=== PATIENT | female | born 1955 | race Caucasian/White ===

== ENCOUNTER 2016-11-25 09:16 | Outpatient (CLI) | payer BC ==
[~2016-11-25] VITALS: Ht 167.6 cm; Wt 97.5 kg
[~2016-11-25 09:16] MED LIST: ACET65TA OR; ASPI325T OR; ASPI325T PO; ATEN25TA OR; ATEN25TA PO; PREV15CA PO; PREV15CA18 PO; TUMS500C OR
[2016-11-25] MEDS ORDERED: NS 1,000 ML IV SCH (09:30)
[2016-11-25] MEDS ORDERED: PROPOFOL 200 MG/20 ML VIAL As Ordered ONE ×3 (10:07→10:31)
[2016-11-25] MEDS ORDERED: LIDOCAINE 2% INJ 100 MG/5 ML SDV (FOR ANES.) As Ordered ONE (10:08)
--- NOTE | 2016-11-25 10:27 | ROOR ---
Patient Name: Ruchi Prasad Procedure Date: 11/25/2016 10:03 AM Date of : 1955 Age: 61 Room: [facility] Gender: Female Note Status: Finalized Procedure: Upper Endoscopy + Biopsies Indications: Heartburn Providers: Miguel Angel Mckeon MD Referring MD: Marco Walton MD Requesting Provider: Medicines: Monitored Anesthesia Care Complications: No immediate complications. Procedure: Pre-Anesthesia Assessment: - The heart rate, respiratory rate, oxygen saturations, blood pressure, adequacy of pulmonary ventilation, and response to care were monitored throughout the procedure. The Endoscope was introduced through the mouth, and advanced to the second part of duodenum. The upper GI endoscopy was accomplished without difficulty. The patient tolerated the procedure well. Findings: The Z-line was irregular and was found 40 cm from the incisors. Multiple biopsies were obtained with cold forceps for evaluation to rule out Lee's Esophagus randomly at the gastroesophageal junction. A small hiatal hernia was present. Multiple small sessile polyps with no stigmata of recent bleeding were found on the greater curvature of the stomach. The exam of the duodenum was otherwise normal. Impression: - Z-line irregular, 40 cm from the incisors. - Small hiatal hernia. - Multiple gastric polyps. - Multiple biopsies were obtained at the gastroesophageal junction. - The examination was otherwise normal. Recommendation: - Patient has a contact number available for emergencies. The signs and symptoms of potential delayed complications were discussed with the patient. Return to normal activities tomorrow. Written discharge instructions were provided to the patient. - High fiber diet. - Discharge patient to home. - Continue present medications. - Await pathology results. - Telephone GI clinic for pathology results in 1 week. - Check Portal Online for Path Results.([email or web address]) - Return to referring physician. - The findings and recommendations were discussed with the patient's family. Miguel Angel Mckeon MD Miguel Angel Mckeon MD 11/25/2016 10:27:09 AM This report has been signed electronically. Number of Addenda: 0 Note Initiated On: 11/25/2016 10:03 AM Estimated Blood Loss: Estimated blood loss: none.
--- NOTE | 2016-11-25 10:56 | ROOR ---
Patient Name: Ruchi Prasad Procedure Date: 11/25/2016 10:04 AM Date of : 1955 Age: 61 Room: [facility] Gender: Female Note Status: Finalized Procedure: Total Colonoscopy to Cecum + Cold Snare Polypectomy + Hemoclips Indications: Colon cancer screening in patient at increased risk: Colorectal cancer in sister Providers: Miguel Angel Mckeon MD Referring MD: Marco Walton MD Requesting Provider: Medicines: Monitored Anesthesia Care Complications: No immediate complications. Procedure: Pre-Anesthesia Assessment: - The heart rate, respiratory rate, oxygen saturations, blood pressure, adequacy of pulmonary ventilation, and response to care were monitored throughout the procedure. The Colonoscope was introduced through the anus and advanced to the cecum, identified by appendiceal orifice and ileocecal valve. The colonoscopy was performed without difficulty. The patient tolerated the procedure well. The quality of the bowel preparation was excellent. Findings: The perianal and digital rectal examinations were normal. Non-bleeding internal hemorrhoids were found during retroflexion. The hemorrhoids were small and Grade I (internal hemorrhoids that do not prolapse). Multiple small and large-mouthed diverticula were found in the recto-sigmoid colon, sigmoid colon and descending colon. A medium polyp was found in the proximal transverse colon. The polyp was pedunculated. The polyp was removed with a cold snare. Resection and retrieval were complete. To prevent bleeding after the polypectomy, one hemostatic clip was successfully placed (MR conditional). There was no bleeding at the end of the procedure. A medium polyp was found in the appendiceal orifice. The polyp was sessile. The polyp was removed with a cold snare. Resection and retrieval were complete. To prevent bleeding after the polypectomy, one hemostatic clip was successfully placed (MR conditional). There was no bleeding at the end of the procedure. A medium polyp was found in the mid ascending colon. The polyp was sessile. The polyp was removed with a cold snare. Resection and retrieval were complete. The exam was otherwise without abnormality on direct and retroflexion views. Impression: - Non-bleeding internal hemorrhoids. - Diverticulosis in the recto-sigmoid colon, in the sigmoid colon and in the descending colon. - One medium polyp in the proximal transverse colon, removed with a cold snare. Resected and retrieved. Clip (MR conditional) was placed. - One medium polyp at the appendiceal orifice, removed with a cold snare. Resected and retrieved. Clip (MR conditional) was placed. - One medium polyp in the mid ascending colon, removed with a cold snare. Resected and retrieved. - The examination was otherwise normal on direct and retroflexion views. - The exam was otherwise normal to the cecum. Recommendation: - Patient has a contact number available for emergencies. The signs and symptoms of potential delayed complications were discussed with the patient. Return to normal activities tomorrow. Written discharge instructions were provided to the patient. - High fiber diet. - Discharge patient to home. - Continue present medications. - Await pathology results. - Telephone GI clinic for pathology results in 1 week. - Repeat colonoscopy for surveillance based on pathology results. - Return to referring physician. - The findings and recommendations were discussed with the patient's family. Miguel Angel Mckeon MD Miguel Angel Mckeon MD 11/25/2016 10:55:39 AM This report has been signed electronically. Number of Addenda: 0 Note Initiated On: 11/25/2016 10:04 AM Estimated Blood Loss: Estimated blood loss: none.
[2016-11-25 11:15] VITALS: BP 99/59
== END 2016-11-25 11:35 ==
LOC: M OPP 09:16
PROVIDERS: ATTEND Internal Medicine Gastroenterology
DX: Z12.11 Encounter for screening for malignant neoplasm of colon (principal); K64.0 First degree hemorrhoids; D12.3 Benign neoplasm of transverse colon; D12.2 Benign neoplasm of ascending colon; D12.1 Benign neoplasm of appendix; K57.30 Diverticulosis of large intestine without perforation or abscess without bleeding; R12 Heartburn; K22.8 Other specified diseases of esophagus; K44.9 Diaphragmatic hernia without obstruction or gangrene; K31.7 Polyp of stomach and duodenum; K21.9 Gastro-esophageal reflux disease without esophagitis; D64.9 Anemia, unspecified; I48.91 Unspecified atrial fibrillation; Z79.82 Long term (current) use of aspirin; Z79.899 Other long term (current) drug therapy

== ENCOUNTER → 2020-07-24 | Outpatient (CLI) | payer BC ==
[~2020-07-24] MED LIST changes: +ASPI-1 PO; -ASPI325T PO
== END ==
LOC: M LABSMTC 09:38
PROVIDERS: ATTEND Anesthesiology
DX: Z01.818 Encounter for other preprocedural examination (principal); Z11.52 Encounter for screening for COVID-19

== ENCOUNTER 2020-07-29 07:18 | Day surgery (SDC) | payer BC, MEDICARE ==
[~2020-07-29] VITALS: Ht 167.6 cm; Wt 94.3 kg
[~2020-07-29 07:18] MED LIST changes: +NS 1,000 ML IV ONE
[2020-07-29] MEDS ORDERED: propofoL 200 MG/20 ML VIAL As Ordered ONE (08:22)
[2020-07-29] MEDS ORDERED: LIDOCAINE 2% 100MG/5ML SDV (FOR ANES.) As Ordered ONE (08:22)
[2020-07-29] MEDS ORDERED: fentaNYL 100 MCG/2 ML INJECTION (J3010) As Ordered ONE (08:23)
--- NOTE | 2020-07-29 08:42 | ROOR ---
Patient Name: Ruchi Prasad Procedure Date: 07/29/2020 8:24 AM Date of : 1955 Age: 64 Room: [facility] Gender: Female Note Status: Finalized Procedure: Upper Endoscopy + Biopsies Indications: Heartburn, Exclusion of Lee's esophagus Providers: Miguel Angel Mckeon MD Referring MD: Marco Walton MD Requesting Provider: Medicines: Monitored Anesthesia Care Complications: No immediate complications. Procedure: Pre-Anesthesia Assessment: - The heart rate, respiratory rate, oxygen saturations, blood pressure, adequacy of pulmonary ventilation, and response to care were monitored throughout the procedure. The Endoscope was introduced through the mouth, and advanced to the second part of duodenum. The upper GI endoscopy was accomplished without difficulty. The patient tolerated the procedure well. Findings: The Z-line was irregular and was found 40 cm from the incisors. Multiple biopsies were obtained with cold forceps for evaluation to rule out Lee's Esophagus randomly at the gastroesophageal junction. A small hiatal hernia was present. No other significant abnormalities were identified in a careful examination of the stomach. The exam of the duodenum was otherwise normal. Impression: - Z-line irregular, 40 cm from the incisors. - Small hiatal hernia. - Multiple biopsies were obtained at the gastroesophageal junction. - The examination was otherwise normal. Recommendation: - Patient has a contact number available for emergencies. The signs and symptoms of potential delayed complications were discussed with the patient. Return to normal activities tomorrow. Written discharge instructions were provided to the patient. - High fiber diet. - Discharge patient to home. - Follow an antireflux regimen. - Continue present medications. - Await pathology results. - Telephone GI clinic for pathology results in 1 week. - The findings and recommendations were discussed with the patient. Procedure Code(s): --- Professional --- 59445, Esophagogastroduodenoscopy, flexible, transoral; with biopsy, single or multiple Diagnosis Code(s): --- Professional --- K22.8, Other specified diseases of esophagus K44.9, Diaphragmatic hernia without obstruction or gangrene R12, Heartburn CPT copyright 2019 [employer]. All rights reserved. The codes documented in this report are preliminary and upon welding machine operator electro gas review may be revised to meet current compliance requirements. Miguel Angel Mckeon MD Miguel Angel Mckeon MD 07/29/2020 8:41:31 AM Electronically signed by Miguel Angel Mckeon MD Number of Addenda: 0 Note Initiated On: 07/29/2020 8:24 AM Estimated Blood Loss: Estimated blood loss: none.
[2020-07-29] MEDS ORDERED: PHENYLephrine 500MCG 5ML (100MCG/ML) SYRINGE As Ordered ONE (08:50)
--- NOTE | 2020-07-29 09:04 | ROOR ---
Patient Name: Ruchi Prasad Procedure Date: 07/29/2020 8:25 AM Date of : 1955 Age: 64 Room: [facility] Gender: Female Note Status: Finalized Procedure: Total Colonoscopy to Cecum + Biopsy Polypectomy + ileoscopy Indications: Colon cancer screening in patient at increased risk: Colorectal cancer in sister, High risk colon cancer surveillance: Personal history of colonic polyps Providers: Miguel Angel Mckeon MD Referring MD: Marco Walton MD Requesting Provider: Medicines: Monitored Anesthesia Care Complications: No immediate complications. Procedure: Pre-Anesthesia Assessment: - The heart rate, respiratory rate, oxygen saturations, blood pressure, adequacy of pulmonary ventilation, and response to care were monitored throughout the procedure. The Colonoscope was introduced through the anus and advanced to the terminal ileum, with identification of the appendiceal orifice and IC valve. The colonoscopy was performed without difficulty. The patient tolerated the procedure well. The quality of the bowel preparation was excellent. Findings: The perianal and digital rectal examinations were normal. Non-bleeding internal hemorrhoids were found during retroflexion. The hemorrhoids were small and Grade I (internal hemorrhoids that do not prolapse). Multiple small and large-mouthed diverticula were found in the recto-sigmoid colon, sigmoid colon and descending colon. A small polyp was found in the cecum. The polyp was sessile. The polyp was removed with a jumbo cold forceps. Resection and retrieval were complete. The exam was otherwise without abnormality on direct and retroflexion views. The terminal ileum appeared normal. The exam was otherwise without abnormality. Impression: - Non-bleeding internal hemorrhoids. - Diverticulosis in the recto-sigmoid colon, in the sigmoid colon and in the descending colon. - One small polyp in the cecum, removed with a jumbo cold forceps. Resected and retrieved. - The examination was otherwise normal on direct and retroflexion views. - The examined portion of the ileum was normal. - The examination was otherwise normal. - The exam was otherwise normal to the cecum. Recommendation: - Patient has a contact number available for emergencies. The signs and symptoms of potential delayed complications were discussed with the patient. Return to normal activities tomorrow. Written discharge instructions were provided to the patient. - High fiber diet. - Discharge patient to home. - Continue present medications. - Await pathology results. - Telephone GI clinic for pathology results in 1 week. - Repeat colonoscopy in 3 years for surveillance based on pathology results. - Return to referring physician. - The findings and recommendations were discussed with the patient. Procedure Code(s): --- Professional --- 32746, Colonoscopy, flexible; with biopsy, single or multiple Diagnosis Code(s): --- Professional --- Z80.0, Family history of malignant neoplasm of digestive organs Z86.010, Personal history of colonic polyps K64.0, First degree hemorrhoids K63.5, Polyp of colon K57.30, Diverticulosis of large intestine without perforation or abscess without bleeding CPT copyright 2019 [employer]. All rights reserved. The codes documented in this report are preliminary and upon fabric and textile factory worker review may be revised to meet current compliance requirements. Miguel Angel Mckeon MD Miguel Angel Mckeon MD 07/29/2020 9:03:45 AM Electronically signed by Miguel Angel Mckeon MD Number of Addenda: 0 Note Initiated On: 07/29/2020 8:25 AM Estimated Blood Loss: Estimated blood loss: none.
[2020-07-29 09:43] VITALS: BP 141/63
== END 2020-07-29 09:51 | disposition home or self-care (01) ==
LOC: M OPP 07:18
PROVIDERS: ATTEND Internal Medicine Gastroenterology
DX: Z12.11 Encounter for screening for malignant neoplasm of colon (principal); Z86.010 Personal history of colon polyps; Z80.0 Family history of malignant neoplasm of digestive organs; D12.0 Benign neoplasm of cecum; K57.30 Diverticulosis of large intestine without perforation or abscess without bleeding; K64.8 Other hemorrhoids; K22.8 Other specified diseases of esophagus; K44.9 Diaphragmatic hernia without obstruction or gangrene; R12 Heartburn; K21.9 Gastro-esophageal reflux disease without esophagitis; Z79.82 Long term (current) use of aspirin; Z79.899 Other long term (current) drug therapy
CPT/HCPCS: 43239; 45380; 88305; J2370; J3010

== ENCOUNTER → 2022-07-24 | Outpatient (CLI) | payer MEDICARE ==
[~2022-07-24] MED LIST changes: -NS 1,000 ML IV ONE; -PREV15CA18 PO; +PREV15CA24 PO
== END ==
LOC: M WHC 07:58
PROVIDERS: ATTEND Family Medicine
DX: Z12.31 Encounter for screening mammogram for malignant neoplasm of breast (principal)

== ENCOUNTER → 2022-08-10 | Outpatient (CLI) | payer MEDICARE | LOC: M RAD 13:58 | PROVIDERS: ATTEND Nurse Practitioner Adult Health | DX: M25.462 Effusion, left knee (principal); M70.862 Other soft tissue disorders related to use, overuse and pressure, left lower leg; M79.662 Pain in left lower leg ==

== ENCOUNTER → 2022-10-07 | Outpatient (CLI) | payer MEDICARE | LOC: M WHC 08:13 | PROVIDERS: ATTEND Family Medicine | DX: M81.0 Age-related osteoporosis without current pathological fracture (principal) ==

== ENCOUNTER 2022-11-18 16:37 | Emergency (ER) | payer MEDICARE ==
[~2022-11-18] VITALS: Ht 165.1 cm; Wt 87.7 kg
[2022-11-18] MEDS ORDERED: NS 500 ML IV ONE (16:55)
[2022-11-18] MEDS ORDERED: MECLIZINE 25 MG TABLET PO ONE ×2 (16:55→18:55)
[2022-11-18] MEDS ORDERED: ELIQ5TAB PO (17:16)
[2022-11-18 17:48] LABS: BASO % 0.2 % (0.0-1.0); EOS # 0.1 10^3/uL (0.0-0.5); EOS % 0.5 % (0.0-3.0); HEMATOCRIT 46.9 % (36.0-47.0); HEMOGLOBIN 15.6 g/dl (12.0-15.5); LYMPH # 2.2 10^3/uL (1.5-5.0); LYMPH % 22.5 % (24.0-44.0); MEAN CORPUSCULAR HEMOGLOBIN 30.4 pg (27.0-33.0); MEAN CORPUSCULAR HGB CONC 33.3 g/dl (32.0-36.5); MEAN CORPUSCULAR VOLUME 91.4 fl (80.0-96.0); MONO # 0.6 10^3/uL (0.0-0.8); MONO % 6.1 % (2.0-8.0); NEUTROPHILS % 70.3 % (36.0-66.0); PLATELET COUNT, AUTOMATED 265 10^3/uL (150-450); RED BLOOD COUNT 5.13 10^6/uL (4.00-5.40); WHITE BLOOD COUNT 9.9 10^3/uL (4.0-10.0)
[2022-11-18 18:09] LABS: BLOOD UREA NITROGEN 16 MG/DL (9-23); CALCIUM LEVEL 10.3 MG/DL (8.3-10.6); CARBON DIOXIDE LEVEL 26 MMOL/L (20-31); CHLORIDE LEVEL 105 MMOL/L (98-107); CREATININE FOR GFR 0.69 MG/DL (0.55-1.30); GLOMERULAR FILTRATION RATE > 60.0 (>45); GLUCOSE, FASTING 104 MG/DL (74-106); MAGNESIUM LEVEL 2.1 MG/DL (1.8-2.4); POTASSIUM SERUM 4.1 MMOL/L (3.5-5.1); SODIUM LEVEL 142 MMOL/L (136-145)
[2022-11-18 18:11] LABS: THYROID STIMULATING HORMONE 1.232 uIU/ML (0.55-4.78)
[2022-11-18 18:12] LABS: T UPTAKE 32.6 % (22.5-37.0)
[2022-11-18] MEDS ORDERED: MECL1TAB31 PO (18:21)
[2022-11-18] MEDS ORDERED: vestibular PT (18:22)
[2022-11-18 18:41] LABS: FREE THYROXINE INDEX 2.7 % (1.3-4.8); THYROXINE (T4) 8.2 UG/DL (4.5-10.9)
[2022-11-18 18:50] VITALS: BP 159/107; TEMP 96.9; O2SAT 97
== END 2022-11-18 19:05 | disposition home or self-care (01) ==
LOC: M ED 16:37
DX: H81.399 Other peripheral vertigo, unspecified ear (principal); E78.5 Hyperlipidemia, unspecified; K21.9 Gastro-esophageal reflux disease without esophagitis; Z79.899 Other long term (current) drug therapy; Z79.01 Long term (current) use of anticoagulants

== ENCOUNTER → 2022-11-19 | Outpatient (REF) | payer MEDICARE ==
[~2022-11-19] MED LIST changes: +ELIQ5TAB PO; +MECL1TAB31 PO; +vestibular PT
== END ==
LOC: M LAB REF 09:46
PROVIDERS: ATTEND Nurse Practitioner Family
DX: R35.0 Frequency of micturition (principal)

== ENCOUNTER → 2023-07-26 | Outpatient (CLI) | payer MEDICARE ==
[~2023-07-26] MED LIST changes: +MECL-209 PO; -MECL1TAB31 PO
== END ==
LOC: M WHC 09:33
PROVIDERS: ATTEND Family Medicine
DX: Z12.31 Encounter for screening mammogram for malignant neoplasm of breast (principal)

== ENCOUNTER → 2023-09-27 | Outpatient (REF) | payer MEDICARE | LOC: M LAB REF 16:13 | PROVIDERS: ATTEND Family Medicine | DX: N39.0 Urinary tract infection, site not specified (principal) ==

== ENCOUNTER → 2024-08-07 | Outpatient (CLI) | payer MEDICARE | LOC: M WHC 08:45 | PROVIDERS: ATTEND Family Medicine | DX: Z12.31 Encounter for screening mammogram for malignant neoplasm of breast (principal) ==